=== PATIENT | male | born 1945 | race Caucasian/White ===

== ENCOUNTER 2021-04-24 07:04 | Day surgery (SDC) | payer MEDICARE, OTHER ==
[2021-04-24 12:01] VITALS: BP 119/66
== END 2021-04-24 09:20 | disposition home or self-care (01) ==
LOC: RAD 07:04
PROVIDERS: ATTEND Neurological Surgery
PROC: B01B1ZZ Fluoroscopy of Spinal Cord using Low Osmolar Contrast (ICD-10-PCS; principal; 2021-04-24)
PROC: 3E0R3KZ Introduction of Other Diagnostic Substance into Spinal Canal, Percutaneous Approach (ICD-10-PCS; 2021-04-24)
DX: M48.062 Spinal stenosis, lumbar region with neurogenic claudication (principal); M51.16 Intervertebral disc disorders with radiculopathy, lumbar region; M51.46 Schmorl's nodes, lumbar region; M47.26 Other spondylosis with radiculopathy, lumbar region; M43.16 Spondylolisthesis, lumbar region; I71.4 Abdominal aortic aneurysm, without rupture; E78.00 Pure hypercholesterolemia, unspecified; E11.9 Type 2 diabetes mellitus without complications; I11.9 Hypertensive heart disease without heart failure; E07.9 Disorder of thyroid, unspecified; Z87.891 Personal history of nicotine dependence; Z95.1 Presence of aortocoronary bypass graft; Z95.0 Presence of cardiac pacemaker; Z79.84 Long term (current) use of oral hypoglycemic drugs; Z79.02 Long term (current) use of antithrombotics/antiplatelets; Z79.01 Long term (current) use of anticoagulants; Z79.899 Other long term (current) drug therapy
CPT/HCPCS: 62304; 72120; 72132

== ENCOUNTER 2021-06-05 11:12 | Outpatient (CLI) | payer MEDICARE, OTHER ==
[2021-06-05 13:33] LABS: Hemoglobin 13.8 g/dL (13.5-17.5); Mean Corpuscular HGB CONC 32.9 g/dL (32.0-36.0); Mean Corpuscular Hemoglobin 30.7 pg (27.0-33.0); Mean Corpuscular Volume 93.1 fl (81.2-95.1); Mean Platelet Volume 9.8 fl (7.4-10.4); Platelet Count 226 10x3/uL (150-450); RBC Distribution Width 13.2 % (11.5-14.5); White Blood Cell (WBC) Count 7.6 10x3/uL (3.5-10.5)
[2021-06-05 13:34] LABS: PTT 29.2 sec (22.0-33.0)
[2021-06-05 14:03] LABS: Anion Gap 15 mmol/L (10-20); BUN (Urea Nitrogen) 24 mg/dL (8.4-25.7); Calc. Creatinine Clearance 0 mL/min (70-130); Calcium 9.4 mg/dL (7.8-10.44); Carbon Dioxide 27 mmol/L (23-31); Chloride 100 mmol/L (98-107); Glucose 106 mg/dL (83-110); Potassium 4.8 mmol/L (3.5-5.1); Sodium 137 mmol/L (136-145)
[2021-06-05 21:48] LABS: SARS-CoV-2 PCR by NAA Not Detected (NotDetected)
== END 2021-06-05 11:13 | disposition home or self-care (01) ==
LOC: LABBT 11:12
PROVIDERS: ATTEND Neurological Surgery
DX: Z01.818 Encounter for other preprocedural examination (principal); M48.061 Spinal stenosis, lumbar region without neurogenic claudication; Z20.822 Contact with and (suspected) exposure to COVID-19
CPT/HCPCS: 80048; 85027; 85610; 85730; 93005; U0003; U0005; 93010

== ENCOUNTER 2021-06-08 05:56 | Observation (INO) | payer MEDICARE, OTHER ==
[2021-06-06 14:41] VITALS: BMI 35.0
[2021-06-08] MEDS ORDERED: Bupivacaine PF 0.5% 30 ML VIAL ONE (06:10)
[2021-06-08] MEDS ORDERED: Neomycin-Polymyxin 1 ML AMP ONE (06:10)
[2021-06-08] MEDS ORDERED: Thrombin 5000 UNITS/5 ML VIAL ONE (06:10)
[2021-06-08] MEDS ORDERED: EPINEPHrine 1 MG/ML AMP ONE (06:10)
[2021-06-08] MEDS ORDERED: Fentanyl 100 MCG/2 ML VIAL ONE (06:26)
[2021-06-08] MEDS ORDERED: HYDROmorphone 2 MG/ML VIAL ONE (06:27)
[2021-06-08] MEDS ORDERED: Metoclopramide HCl 10 MG/2 ML VIAL ONE (07:00)
[2021-06-08] MEDS ORDERED: Rocuronium Bromide 10 MG/ML (10ML VIAL) ONE (07:00)
[2021-06-08] MEDS ORDERED: ePHEDrine 50 MG/ML VIAL ONE (07:00)
[2021-06-08] MEDS ORDERED: PHENYLEPHRINE-NS 100 MCG/ML 10 ML SYRINGE ONE ×4 (07:00→09:02)
[2021-06-08] MEDS ORDERED: Dexamethasone 20 MG/5 ML VIAL ONE (07:00)
[2021-06-08] MEDS ORDERED: PROPOFOL 200 MG/20 ML VIAL ONE (07:00)
[2021-06-08] MEDS ORDERED: Lidocaine 1% PF 5 ML VIAL ONE (07:00)
[2021-06-08] MEDS ORDERED: Ondansetron PF 4 MG/2 ML Vial ONE (07:00)
[2021-06-08] MEDS ORDERED: ePHEDrine Sulfate 50 MG/10 ML VIAL ONE ×2 (08:25→09:02)
[2021-06-08] MEDS ORDERED: SUGAMMADEX SODIUM 200 MG/2 ML VIAL ONE (09:24)
[2021-06-08] MEDS ORDERED: Promethazine HCl 25 MG/ML VIAL IM PRN ×3 (09:40→15:40)
[2021-06-08] MEDS ORDERED: HYDROmorphone 2 MG/ML VIAL SLOW IVP PRN (09:40)
[2021-06-08] MEDS ORDERED: Meperidine HCl/PF 25 MG/ML VIAL SLOW IVP PRN (09:40)
[2021-06-08] MEDS ORDERED: Ondansetron HCl/PF 4 MG/2 ML Vial IVP PRN (09:40)
[2021-06-08] MEDS ORDERED: Promethazine HCl 25 MG/ML VIAL IVPB PRN (09:40)
[2021-06-08] MEDS ORDERED: Morphine 4 MG/ML VIAL ONE (11:50)
[2021-06-08] MEDS ORDERED: HYDROcodone/Acetaminophen 5/325 mg Tablet ONE (12:17)
[2021-06-08] MEDS ORDERED: Sodium Chloride For Inhalation 0.9% 3 ML NEB ONE (12:21)
[2021-06-08] MEDS ORDERED: Ondansetron PF 4 MG/2 ML Vial IVP PRN ×2 (12:23→15:40)
[2021-06-08] MEDS ORDERED: tiZANidine HCl 4 MG TAB PO PRN ×2 (12:23→15:42)
[2021-06-08] MEDS ORDERED: Mag-Al 1200 mg/1200 mg/30 ML UDCUP PO PRN ×2 (12:23→15:33)
[2021-06-08] MEDS ORDERED: diphenhydrAMINE 50 MG/ML VIAL IVP PRN ×2 (12:23→15:35)
[2021-06-08] MEDS ORDERED: Acetaminophen/Codeine 30-300mg Tablet PO PRN ×2 (12:23→15:32)
[2021-06-08] MEDS ORDERED: HYDROcodone/Acetaminophen 10/325 mg Tablet PO PRN (12:23)
[2021-06-08] MEDS ORDERED: HYDROcodone/Acetaminophen 7.5/325 mg Tablet PO PRN ×2 (12:23→15:37)
[2021-06-08] MEDS ORDERED: Milk Of Magnesia 30 ML UDCUP PO PRN ×2 (12:23→15:37)
[2021-06-08] MEDS ORDERED: Sodium Chloride 0.9% 1,000 ML IV SCH (12:30)
[2021-06-08] MEDS ORDERED: Morphine 4 MG/ML VIAL SLOW IVP PRN ×2 (12:44→15:40)
[2021-06-08] MEDS ORDERED: tiZANidine HCl 4 MG TAB ONE (13:11)
[2021-06-08] MEDS ORDERED: ceFAZolin Sodium/D5W 2 GM in Premix Bag 1 BAG IVPB SCH ×2 (14:00→22:00)
[2021-06-08] MEDS: Sodium Chloride 0.9% 1,000 ML IV SCH (15:59)
[2021-06-08] MEDS: HYDROcodone/Acetaminophen 10/325 mg Tablet PO PRN (15:59)
[2021-06-08] MEDS: metFORMIN 500 MG TAB PO SCH (16:03)
[2021-06-08] MEDS ORDERED: metFORMIN 500 MG TAB PO SCH (17:00)
[2021-06-08] MEDS ORDERED: Amitriptyline HCl 25 MG TAB PO SCH ×2 (21:00)
[2021-06-08] MEDS ORDERED: Carvedilol 25 MG TAB PO SCH (21:00)
[2021-06-08] MEDS: Carvedilol 25 MG TAB PO SCH (21:17)
[2021-06-09] MEDS: HYDROcodone/Acetaminophen 10/325 mg Tablet PO PRN ×2 (01:50→12:41)
[2021-06-09] MEDS: Sodium Chloride 0.9% 1,000 ML IV SCH (06:57)
[2021-06-09 08:07] VITALS: BP 145/81; TEMP 97.7
[2021-06-09] MEDS: metFORMIN 500 MG TAB PO SCH (08:13)
[2021-06-09] MEDS: Carvedilol 25 MG TAB PO SCH (08:14)
[2021-06-09] MEDS ORDERED: Methimazole 5 MG TAB PO SCH ×2 (09:00)
[2021-06-09] MEDS ORDERED: Spironolactone 25 MG TAB PO SCH ×2 (09:00)
[2021-06-09] MEDS ORDERED: Furosemide 20 MG TAB PO SCH ×2 (09:00)
[2021-06-09] MEDS ORDERED: Lisinopril 20 MG TAB PO SCH ×2 (09:00)
[2021-06-09] MEDS ORDERED: Atorvastatin Calcium 20 MG TAB PO SCH ×2 (09:00)
[2021-06-09] MEDS ORDERED: Hydrochlorothiazide 25 MG TAB PO SCH ×2 (09:00)
== END 2021-06-09 12:58 | disposition home or self-care (01) ==
LOC: SDC 05:56 → SURG A 12:23 → SDC 13:40
PROVIDERS: ADMIT Neurological Surgery; ATTEND Neurological Surgery
PROC: 01NB0ZZ Release Lumbar Nerve, Open Approach (ICD-10-PCS; principal; 2021-06-08)
DX: M48.062 Spinal stenosis, lumbar region with neurogenic claudication (principal); E78.00 Pure hypercholesterolemia, unspecified; E11.9 Type 2 diabetes mellitus without complications; I11.9 Hypertensive heart disease without heart failure; E07.9 Disorder of thyroid, unspecified; Z79.01 Long term (current) use of anticoagulants; Z79.02 Long term (current) use of antithrombotics/antiplatelets; Z79.84 Long term (current) use of oral hypoglycemic drugs; Z79.899 Other long term (current) drug therapy; Z95.0 Presence of cardiac pacemaker; Z95.1 Presence of aortocoronary bypass graft; Z87.891 Personal history of nicotine dependence; Z98.890 Other specified postprocedural states; Z95.5 Presence of coronary angioplasty implant and graft
CPT/HCPCS: 76000; 96365; 96366; G0378; J0171; J0690; J1100; J1170; J2270; J2405; J2704; J2765; J3010; J3370; J3490; J7050; S0020